=== PATIENT | male | born 1970 | race Caucasian/White ===

== ENCOUNTER 2016-10-29 12:35 | Emergency (ER) | payer OTHER | END 2016-10-29 14:33 | disposition home or self-care (01) | LOC: ER 12:35 | DX: R07.89 Other chest pain (principal); R74.8 Abnormal levels of other serum enzymes; R79.1 Abnormal coagulation profile; R11.2 Nausea with vomiting, unspecified; I25.10 Atherosclerotic heart disease of native coronary artery without angina pectoris; Z95.1 Presence of aortocoronary bypass graft; I10 Essential (primary) hypertension; F17.210 Nicotine dependence, cigarettes, uncomplicated; I25.2 Old myocardial infarction; Z79.899 Other long term (current) drug therapy; Z87.898 Personal history of other specified conditions ==